=== PATIENT | male | born 1990 | race Caucasian/White ===

== ENCOUNTER 2022-04-28 12:30 | Emergency (ER) | payer SELFPAY ==
[2022-04-28 12:33] VITALS: BP 165/94; PULSE 110; RESP 16; TEMP 36.6; O2SAT 99; BMI 20.9
--- NOTE | 2022-04-28 12:47 | XRR_ITS ---
PROCEDURE INFORMATION: Exam: XR Left Foot Exam date and time: 04/28/2022 1:31 PM Age: 32 years old Clinical indication: Injury or trauma; Fall; Blunt trauma; Toes; Left and left lesser toe(s); Additional info: Fall/pain TECHNIQUE: Imaging protocol: Radiologic exam of the Left foot. Views: 3 or more views. COMPARISON: No relevant prior studies available. FINDINGS: Bones/joints: There is an oblique fracture line through the 1st proximal phalanx with no dislocation. There is a suggestion of minimal displacement on the lateral view. Sclerotic focus in the calcaneus measuring 7 mm, nonspecific but likely benign bone island. No significant arthritic disease. Soft tissues: Normal. XR/XR foot LT min 3V* [id number] IMPRESSION: Fracture of the 1st proximal phalanx.
--- NOTE | 2022-04-28 13:12 | W.ED.EXTPRO ---
HPI - Extremity Problem General: Chief complaint: Extremity Injury, Lower Stated complaint: Left foot injury Time Seen by Provider: 04/28/22 13:12 Source: patient Mode of arrival: ambulatory History of Present Illness: 32-year-old male he stumbled on a porch yesterday. At about 5 AM he fell landed on his left foot states he fell about 4 to 5 feet no other injury no loss consciousness. He is large amount ecchymosis around the MP joint to the left great toe. He has not been able to bear weight on it he has been wearing a regular shoe is just been avoiding putting weight on the big toe or pushing off of it. Used ice and Tylenol. No previous injury. MD Complaint: joint pain Onset (ago): day(s) (1) Pain Consistency: constant Location: left and toe (Great) Quality: aching Radiation: none Relieving factors: immobilization Exacerbating factors: range of motion and weight bearing Associated symptoms: Deny arthralgias, chest pain, fever(s), myalgias, rash or short of breath Review of Systems Const: Denies: fever(s), chills, fatigue or malaise ENMT: Denies: throat pain, ear or mastoid pain, nasal discharge or nasal congestion Card: Denies: chest pain or palpitations Resp: Denies: dyspnea, productive cough, non-productive cough or wheezing GI: Denies: abdominal pain, nausea, vomiting, hematemesis, coffee ground emesis, diarrhea, constipation, bloating, hematochezia or melena : Denies: flank pain, dysuria, urinary frequency or urinary urgency Skin/Breast: Denies: rash PFSH ED PFSH: Social History Smoking and tobacco status: current every day smoker Second hand smoke exposure: No Smoking risk assessment/counseling performed?: Yes Alcohol intake: never Desire information about alcohol rehabilitation?: No Counseling given: No Desire information about substance/drug rehabilitation?: No Counseling given: No Adopted: Yes Caregiver/support person: No Lives independently: Yes Household members: family and children Housing: Manufactured/Mobile home Marital status: Single Number of children: 3 Highest education level completed: 11th Grade service: No Current occupational status: employed History of recent travel: No Physical Exam Const: COMMON NORMALS: no acute distress GENERAL APPEARANCE: cooperative and comfortable ORIENTATION/CONSCIOUSNESS: Yes awake, Yes oriented to person, Yes oriented to place and Yes oriented to time HENMT: COMMON NORMALS: normocephalic and atraumatic HEAD & SCALP: normocephalic and atraumatic Resp: COMMON NORMALS: normal respiratory effort, No retractions, No use of accessory muscles and clear to auscultation bilaterally AUSCULTATION: clear to auscultation bilaterally Cardio: COMMON NORMALS: regular rate, regular rhythm and No murmurs present (Cardio) RATE: regular rate RHYTHM: regular rhythm Extremity: OTHER: Ecchymosis mild swelling of the left great toe localized to the first MP joint no obvious deformity Neuro: SENSORIUM/ORIENTATION: Yes oriented to person, Yes oriented to place and Yes oriented to time Skin: COMMON NORMALS: no rashes or lesions noted GENERAL SKIN EXAM: no rashes or lesions noted Course Vital Signs: Vital signs: Vital Signs Temperature 97.8 F 04/28/22 12:33 Pulse Rate 110 H 04/28/22 12:33 Respiratory Rate 16 04/28/22 12:33 Blood Pressure 165/94 04/28/22 12:33 Pulse Oximetry 99 04/28/22 12:33 Oxygen Delivery Me thod 04/28/22 12:33 MDM - Extremity (Nontraumatic) Medical Decision Making Fracture left great toe walking boot crutches follow-up with podiatry. Tramadol given for pain Medical Records I reviewed the patient's medical records. Lab Data I reviewed the patient's lab results. Discharge Plan Discharge Patient Disposition: Home Clinical Impression: Closed fracture of left great toe Condition: Stable Prescriptions: New tramadol 50 mg tablet 50 mg PO Q6H PRN (Reason: pain) Qty: 20 0RF No Action prednisone 20 mg tablet 20 mg PO DAILY Qty: 3 0RF Discharge Orders: Discharge ED (Routine); Ordered 04/28/22 Ordered By: Rufino Douglas Referrals: Mary Jo Watson FNP-C [Primary Care Provider] - Discharge Diet: Usual diet Discharge Activity: Limit activity as instructed Patient Instructions: Opioid Safety, Pain Management Activity Restrictions/Additional Instructions: No weightbearing left foot. Case management make arrangements for follow-up with podiatry Stand Alone Forms: Work/School Release Coding Level of Care Code ED [employer] As[employer]er for Chg Fwd Exam Detailed
--- NOTE | 2022-04-30 10:27 | PC.SOCIAL ---
Addendum entered by Chrystal Ponce 05/03/22 16:19: Patient had a follow up appointment scheduled for 05.01.[address] Briggs at [facility] - patient did attend appointment. Original Note: Podiatry F/u Message sent to podiatry clinic for f/u. Clinic will contact patient with appointment date and time.
== END 2022-04-28 14:52 | disposition home or self-care (01) ==
PROVIDERS: Emergency Provider Family Medicine; PCP Nurse Practitioner Family
DX: S92.415A Nondisplaced fracture of proximal phalanx of left great toe, initial encounter for closed fracture (principal); W17.89XA Other fall from one level to another, initial encounter; F17.210 Nicotine dependence, cigarettes, uncomplicated
CPT/HCPCS: 73630; 99283; E0114

== ENCOUNTER → 2022-05-14 09:50 | Outpatient (BNVA) | payer SELFPAY | PROVIDERS: PCP Nurse Practitioner Family; Visit Provider Podiatrist Foot & Ankle Surgery | DX: X58.XXXA Exposure to other specified factors, initial encounter (principal); R60.9 Edema, unspecified; S92.412A Displaced fracture of proximal phalanx of left great toe, initial encounter for closed fracture | CPT/HCPCS: 73630 ==

== ENCOUNTER 2023-10-02 09:20 | Outpatient (CLI) | payer BC, MEDICAID, SELFPAY ==
--- NOTE | 2023-10-02 09:30 | US_ITS ---
WS: [id number] ULTRASOUND ABDOMEN LIMITED CLINICAL INFORMATION: K42.9 - Umbilical hernia without obstruction or gangrene COMPARISON: None. FINDINGS: Ultrasound umbilical hernia. Umbilical hernia is visualized in the area of concern just to the LEFT o f midline. Herniation of omental fat with suspected herniation of small bowel. Suspected small bowel is seen to protrude into the hernia without evidence of obstruction. Recommend further evaluation wit h contrast-enhanced CT abdomen pelvis for better anatomic detail. IMPRESSION: Visualized fat-containing and suspected small bowel containing [place] umbilical hernia without lavelle dence of obstruction. Recommend further evaluation with contrast-enhanced CT abdomen pelvis for jessica r anatomic detail.
== END 2023-10-02 09:21 | disposition home or self-care (01) ==
LOC: RAD 09:20
PROVIDERS: PCP Nurse Practitioner Family; Visit Provider Nurse Practitioner Family
DX: K42.9 Umbilical hernia without obstruction or gangrene (principal)
CPT/HCPCS: 76705

== ENCOUNTER 2023-11-28 10:26 | Outpatient (CLI) | payer BC, MEDICAID, SELFPAY ==
--- NOTE | 2023-11-28 10:30 | CT_ITS ---
WS: [id number] CT ABDOMEN WITHOUT CONTRAST HISTORY: K42.9 - Umbilical hernia without obstruction or gangrene Contiguous single phase 5 mm axial imaging performed to the abdomen. Oral contrast has been provided. Coronal and sagittal reformats are submitted. All CT scans at [facility] use at least one of these dose optimization techniques: automated exposure control; mA and/or kV adjustment per patient size (includes targeted exams where dose is matched to clinical indication); or iterative reconstruct ion. IV CONTRAST: None Oral contrast: Yes. DLP: 238.05 mGy.cm COMPARISON: Ultrasound 10/02/2023 Lower thorax: Lung bases are clear. Heart is normal size. No hiatal hernia. Liver/biliary system: Normal size with no intrahepatic dilatation. Gallbladder: Normal. No gallstones or wall thickening. No pericholecystic fluid. Pancreas: Normal size pancreas and pancreatic duct. No adjacent inflammation. Spleen: Normal size spleen. No mass or infarct. Adrenal glands: Normal. Right kidney: Normal. Left kidney: Normal. Aorta: Normal. Lymphadenopathy: None. Free fluid: None. GI tract: Unremarkable. GI tract only through the abdomen visualized. The pelvis was not ordered. Abdominal wall: Ventral abdominal wall hernia contains fat only. Please note the entire abdominal wal l is not imaged as only the abdomen CT was ordered. Visualized osseous structures: Negative. CT/CT abdomen wo con [id number] IMPRESSION: 1. Ventral abdominal wall hernia contains fat only. Only the abdomen CT was or dered. 2. Otherwise negative.
[2023-11-28] MEDS: barium sulfate 450 mL Oral Susp PO (10:37)
== END 2023-11-28 10:27 | disposition home or self-care (01) ==
LOC: RAD 10:26
PROVIDERS: PCP Nurse Practitioner Family; Visit Provider Nurse Practitioner Family
DX: K42.9 Umbilical hernia without obstruction or gangrene (principal); K43.9 Ventral hernia without obstruction or gangrene
CPT/HCPCS: 74150

== ENCOUNTER 2023-12-10 07:50 | Day surgery (SDC) | payer BC, MEDICAID, SELFPAY ==
[2023-12-10] VITALS (16 sets, daily range): BP systolic 118–148; BP diastolic 70–99; PULSE 69–117; RESP 14–20; TEMP 36.7; O2SAT 95–99; BMI 25.7
--- NOTE | 2023-12-10 08:09 | PM.HP ---
Providers/Chief Complaint Primary Care Provider: JOHN Braden Chief Complaint: K42.9 History of Present Illness Jose A Starks is a 33 year old male Review of Systems General: Reports: 10 or more systems reviewed and unremarkable except in HPI and below Medications/Allergies Home Medications Medication Instructions Recorded Confirmed Last Taken Type bupropion HCl [Wellbutrin] 300 mg PO DAILY 10/17/23 12/09/23 12/09/23 History buspirone [BuSpar] 10 mg PO DAILY 10/17/23 12/09/23 12/09/23 History lisinopril 40 mg PO DAILY 10/17/23 12/09/23 12/09/23 History sertraline [Zoloft] 100 mg PO BID 10/17/23 12/09/23 12/09/23 History trazodone 100 mg PO BEDTIME 10/17/23 10/17/23 Unknown History clonidine HCl 0.1 mg tablet 0.1 mg PO PRN PRN blood pressure 12/09/23 12/09/23 Unknown History hydroxyzine HCl 50 mg tablet 50 mg PO TID 12/09/23 12/09/23 12/09/23 History Allergies Allergy/AdvReac Type Severity Reaction Status Date / Time No Known Allergies Allergy Verified 10/17/23 09:03 PFSH Acute PFSH: Social History Smoking and tobacco/nicotine status: current every day tobacco/nicotine user cigarettes Packs smoked per day: 1 Second hand smoke exposure: No Alcohol intake: never Substance/Drug Use: never Adopted: Yes Caregiver/support person: No Lives independently: Yes Household members: family and children Housing: Manufactured/Mobile home Marital status: Single Number of children: 3 Highest education level completed: 11th Grade service: No Current occupational status: employed [employer] Assessment and plan (1) Umbilical hernia: Plan Laparoscopic repair of umbilical hernia with mesh Attestations Medical Necessity Statement*: Home Coding Level of Care Code Acute Code for Chg Fwd Diagnoses Umbilical hernia K42.9
[2023-12-10] MEDS: sodium chloride 0.9% 1,000 ML 30 ML IV (08:20)
[2023-12-10] MEDS: midazolam 1 mg/mL INJ 2 mL 2 MG IVP (08:40)
--- NOTE | 2023-12-10 08:58 | ANES.PREANE2 ---
Pre-Anesthetic Assessment Height/Weight: Height 1.83 m Weight 86.183 kg Temp Pulse Resp BP Pulse Ox O2 Del Method 98.1 F 69 18 131/99 96 Room Air 12/10/23 08:11 12/10/23 08:11 12/10/23 08:11 12/10/23 08:11 12/10/23 08:11 12/10/23 08:16 Operation Date: 12/10/23 09:15 Proposed Procedures p Laparoscopic Umbilical Hernia Repair with mesh(Not Applicable) - Manjit Goins DO Familial anesthetic complications: None Was Beta Lianna taken within 24 hours: N/A Was Clonidine taken within 24 hours: N/A Last intake: Intake Last Liquid Date 12/10/23 Last Liquid Time 22:00 Last Solid Date 12/10/23 Last Solid Time 19:00 Social Tobacco and No alcohol marijuana yesterday Exam alert, oriented x 3, clear to auscultation bilaterally and regular rate & rhythm Airway Mallampati: Class I Dentition: chipped Anesthetic Plan ASA status: 1 Anesthesia: General Risk of > 500 ml blood loss (7ml/kg in children): No Medications/Allergies Home Medications Medication Instructions Recorded Confirmed Last Taken Type bupropion HCl [Wellbutrin] 300 mg PO DAILY 10/17/23 12/09/23 12/10/23 History buspirone [BuSpar] 10 mg PO DAILY 10/17/23 12/09/23 12/10/23 History lisinopril 40 mg PO DAILY 10/17/23 12/09/23 12/09/23 History sertraline [Zoloft] 100 mg PO BID 10/17/23 12/09/23 12/10/23 History trazodone 100 mg PO BEDTIME 10/17/23 12/10/23 Unknown History clonidine HCl 0.1 mg tablet 0.1 mg PO PRN PRN blood pressure 12/09/23 12/09/23 Unknown History hydroxyzine HCl 50 mg tablet 50 mg PO TID 12/09/23 12/09/23 12/09/23 History Allergies Allergy/AdvReac Type Severity Reaction Status Date / Time No Known Allergies Allergy Verified 10/17/23 09:03 Current Medications Generic Name Dose Route Start Last Admin Trade Name Freq PRN Reason Stop Dose Admin Midazolam HCl 2 mg 12/10/23 07:53 12/10/23 08:40 Midazolam 1 Mg/Ml Inj 2 Ml IVP 2 mg ONCE PRN Administration Preop Anxiety PFSH Anesthesia Social History Smoking and tobacco/nicotine status: current every day tobacco/nicotine user cigarettes Packs smoked per day: 1 Second hand smoke exposure: No Alcohol intake: never Substance/Drug Use: never Adopted: Yes Caregiver/support person: No Lives independently: Yes Household members: family and children Housing: Manufactured/Mobile home Marital status: Single Number of children: 3 Highest education level completed: 11th Grade service: No Current occupational status: employed Data Anesthesia Cardiac Studies: No Data to Display
[2023-12-10] MEDS: ceFAZolin 2,000 MG in sodium chloride 0.9% (plus) 50 ML 100 MG IV (09:16)
[2023-12-10] MEDS: lidocaine-epi 2% PF 1:200,000 20 mL SDV XX (09:42)
--- NOTE | 2023-12-10 09:58 | PM.OP ---
Operative Report Date of procedure: December 10, 2023 Pre-op diagnosis: Umbilical hernia Post-op diagnosis: same Procedure done: Laparoscopic repair of umbilical hernia with mesh Implants: 11 cm round Ventralight mesh Specimens removed/disposition: Hernia sac Surgeon: Manjit Goins DO Anesthesia: General and Local Estimated blood loss (mL): 5 Complications: None apparent Brief History: This very pleasant 33-year-old gentleman who presented to my office painful and reducible umbilical hernia. He desired repair. Laparoscopic repair of umbilical hernia with mesh was indicated. The risk and benefits were explained and documented. Procedure: Patient was wheeled into the operative room and placed on the OR table in a supine position. Abdomen was inspected prepped and draped in usual sterile fashion. Time-out was performed and all present were in agreement. A 15 blade scalp was used to make a 5 millimeter incision left upper quadrant. A Veress needle was placed into the incision and intra-abdominal insufflation was brought to 15 millimeters of mercury. A 12 millimeter trocar was placed into the left lower quadrant. The energy but device was then used to cut out the hernia sac. A 6 inch ventral light mesh was placed into the abdomen and brought up through the umbilicus using an the Johnathan-Laly. The mesh was then tacked in place in a double crown fashion. The skeleton of the mesh was removed via the left lower quadrant. The hernia sac was then removed from the abdomen via the left lower quadrant. The left lower quadrant port site was closed with an 0 Vicryl suture in a Johnathan-Laly in a [id number] fashion. Incisions were closed with 4 O Vicryl in a subcuticular interrupted fashion. Skin glue was applied. A dressing that included cotton balls and a Tegaderm was placed over the umbilicus. Patient tolerated the procedure well.
[2023-12-10] MEDS: fentaNYL 50 mcg/mL INJ 2mL IVP (10:20)
[2023-12-10] MEDS: meperidine 50 mg/mL INJ 12.5 MG IVP (10:39)
--- NOTE | 2023-12-10 10:41 | PC.NURSE ---
difficult pain management. patient states he has been clean for 9 months and his pain is worse because of that. declining further IV meds
[2023-12-10] MEDS: HYDROcodone-acetaminophen 7.5-325 mg Tablet 1 TAB PO (11:30)
--- NOTE | 2023-12-10 11:50 | ANE.PACU2 ---
Inpatient post-anesthesia follow up: Airway intact: Yes Vital signs: Temperature 98.1 F Pulse Rate 101 Respiratory Rate 16 Blood Pressure 136/89 Pulse Oximetry 98 Oxygen Delivery Me thod Room Air Oxygen Flow Rate Fraction of Inspir ed Oxygen Hydration adequate: Yes Nausea and vomiting: No Pain level: 1 Mental status: Baseline
== END 2023-12-10 11:50 | disposition home or self-care (01) ==
PROVIDERS: PCP Nurse Practitioner Family; Visit Provider Surgery
PROC: 0WQF4ZZ Repair Abdominal Wall, Percutaneous Endoscopic Approach (ICD-10-PCS; CPT 49591; principal; 2023-12-10 09:15)
DX: K42.9 Umbilical hernia without obstruction or gangrene (principal)
CPT/HCPCS: 49591; 88302; C1781; J0690; J1100; J2175; J2250; J2405; J2704; J3010; J3490; J7030